=== PATIENT | male | born 1955 | race Native Hawaiian/Other Pacific Islander ===

== ENCOUNTER 2022-11-29 15:50 | Emergency (ER) | payer MEDICARE, OTHER ==
[~2022-11-29] VITALS: Ht 170.2 cm; Wt 68.0 kg
--- NOTE | 2022-11-29 16:06 | NUR ---
PT IS IN ROOM #2A. DR PIERRE EVALUATED THE PT.
[2022-11-29] MEDS ORDERED: LIDOCAINE HCL 1% 20 ML VIAL ONE (16:16)
[2022-11-29] MEDS ORDERED: LIDOCAINE HCL 1% 20 ML VIAL IJ ONE (17:00)
[2022-11-29] MEDS ORDERED: NEOMY/BACITRA/POLYMYXIN B OINT UD PACKET TP ONE ×2 (17:00→17:01)
[2022-11-29] MEDS ORDERED: TRAM50TA2 PO (17:12)
[2022-11-29] MEDS ORDERED: CEPH500T PO (17:12)
[2022-11-29] MEDS ORDERED: CEphaleXIN 500 MG CAPSULE PO ONE (17:15)
[2022-11-29] MEDS ORDERED: CEphaleXIN 500 MG CAPSULE ONE (17:22)
--- NOTE | 2022-11-29 17:30 | NUR ---
PT WAS D/C'd TO HOME. D/C INSTRUCTIONS GIVEN TO THE PT BY DR PIERRE.
[2022-11-29 17:31] VITALS: BP 133/78; TEMP 98.1; O2SAT 98
== END 2022-11-29 17:32 | disposition home or self-care (01) ==
LOC: ER 15:50
DX: S61.411A Laceration without foreign body of right hand, initial encounter (principal); W26.8XXA Contact with other sharp object(s), not elsewhere classified, initial encounter; Y93.89 Activity, other specified; Y92.89 Other specified places as the place of occurrence of the external cause; Y99.8 Other external cause status
CPT/HCPCS: 12005; 73130; 99283; J3490; A4663

== ENCOUNTER 2022-12-03 12:25 | Emergency (ER) | payer MEDICARE ==
[~2022-12-03] VITALS: Ht 167.6 cm; Wt 68.0 kg
[~2022-12-03 12:25] MED LIST: CEPH500T PO; TRAM50TA2 PO
[2022-12-03 12:49] VITALS: O2SAT 97
--- NOTE | 2022-12-03 13:19 | NUR ---
Patient discharged to home by Dr Epps in stable condition with brisk steady gait. Written and verbal after care instructions given. Patient verbalized understanding and compliance of instructions. Stressed follow up with primary doctor or return to ER for worsening s/s.
== END 2022-12-03 13:19 | disposition home or self-care (01) ==
LOC: ER 12:25
DX: S61.411D Laceration without foreign body of right hand, subsequent encounter (principal); Z79.899 Other long term (current) drug therapy; X58.XXXD Exposure to other specified factors, subsequent encounter
CPT/HCPCS: A4663